=== PATIENT | female | born 1980 | race Caucasian/White ===

== ENCOUNTER 2019-04-06 12:37 | Observation (INO) | payer OTHER ==
[~2019-04-06] VITALS: Ht 157.5 cm; Wt 88.4 kg
[~2019-04-06 12:37] MED LIST: BUPR100 PO; LEVSOD75 PO; ORACONB; TOPI25 PO
[2019-04-06 13:31] LABS: Alanine Aminotransfer (ALT/SGP 77 U/L (12-78); Albumin, Blood 3.3 g/dL (3.4-5.0); Albumin/Globulin Ratio 0.8 (0.8-1.8); Alk Phos 94 U/L (50-136); Anion Gap 9 mmol/L (6-16); Aspartate Aminotrans (AST/SGOT 80 U/L (12-37); Bilirubin, Total 0.7 mg/dL (0.1-1.0); Blood Urea Nitrogen 17 mg/dL (8-24); Bun/Creatinine Ratio 19.1 (12.0-20.0); CO2, Blood 22 mmol/L (21-32); Calcium, Blood 8.5 mg/dL (8.5-10.1); Chloride, Blood 106 mmol/L (98-108); Creatinine, Blood 0.89 mg/dL (0.40-1.00); Globulin, Blood 3.9 g/dL (2.2-4.0); Glomerular Filtration Rate >60 (60-); Glucose, Blood 106 mg/dL (70-99); Potassium, Blood 4.1 mmol/L (3.5-5.5); Sodium, Blood 137 mmol/L (136-145); Total Protein, Blood 7.2 g/dL (6.4-8.2)
[2019-04-06 13:50] LABS: BASOPHILS ABSOLUTE AUTO 0.03 K/mm3 (0.00-0.23); BASOPHILS PERCENT AUTO 0 % (0-2); EOSINOPHILS ABSOLUTE AUTO 0.09 K/mm3 (0.00-0.68); EOSINOPHILS PERCENT AUTO 1 % (0-6); Hematocrit 40.5 % (33.0-51.0); Hemoglobin 12.9 g/dL (11.5-16.0); IMMATURE GRAN ABSOLUTE AUTO 0.02 K/mm3 (0.00-0.10); IMMATURE GRAN PERCENT AUTO 0 % (0-1); LYMPHOCYTES ABSOLUTE AUTO 1.79 K/mm3 (0.84-5.20); LYMPHOCYTES PERCENT AUTO 21 % (21-46); MONOCYTES ABSOLUTE AUTO 0.72 K/mm3 (0.16-1.47); MONOCYTES PERCENT AUTO 8 % (4-13); Mean Corpuscular HGB 28.5 pg (26.0-34.0); Mean Corpuscular HGB Conc 31.9 g/dL (31.5-36.5); Mean Corpuscular Volume 90 fL (80-100); Mean Platelet Volume 10.9 fL (9.1-12.4); NEUTROPHILS ABSOLUTE AUTO 5.94 K/mm3 (1.96-9.15); NEUTROPHILS PERCENT AUTO 69 % (41-73); Platelet Count 244 K/mm3 (150-400); RDW Coefficient Variation 12.6 % (11.7-14.2); RDW Standard Deviation 41.2 fL (35.1-46.3); Red Blood Cell Count 4.52 M/mm3 (3.80-5.20); White Blood Cell Count 8.59 K/mm3 (4.00-11.30)
[2019-04-06] MEDS ORDERED: VITAMIN B-121000 MC2 PO (15:21)
[2019-04-06] MEDS ORDERED: CAMRESE LO TAB1 EAC1 PO (15:22)
[2019-04-06] MEDS ORDERED: BUPROPION XL150 MG PO (15:22)
--- NOTE | 2019-04-06 17:20 | NUR ---
SHIFT SUMMARY PT TO SURGICAL FLOOR FROM ED APPROX 1630 TODAY. IND IN RM. PT WAS GIVEN PAIN AND NAUSEA MED IN ED AND HAS SINCE REPORTED TOLERABLE PAIN AND NO NAUSEA. FAMILY HAS BEEN AT BEDSIDE. PT A/OX4.
--- NOTE | 2019-04-07 06:23 | NUR ---
SHIFT SUMMARY: KEYANNA IS AWAITING CHOLECYSTECTOMY. HER PAIN HAS BEEN WELL CONTROLLED. SHE DID COMPLAING OF A HEADACHE FOR WHICH TYLENOL WAS EFFECTIVE. VSS. SHE IS A&O X 4. SHE DENIES ANY NAUSEA OR VOMITING AT THIS TIME. SHE IS INDEPENDENT IN THE ROOM. SHE IS LYING IN BED WITH HER CALL LIGHT IN REACH.
--- NOTE | 2019-04-07 08:51 | NUR ---
DR. ORELLANA IN TO CONSULT ON PATIENT
--- NOTE | 2019-04-07 11:32 | NUR ---
PT BACK FROM SURGERY AT THIS TIME. VSS. PT DROWSY, REPORTS TOLERABLE DISCOMFORT. FAMILY AT BEDSIDE.
--- NOTE | 2019-04-07 16:29 | NUR ---
SHIFT SUMMARY PT HAD SURGERY TODAY AND HAS BEEN RESTING MUCH OF THE DAY SINCE SURGERY. PAIN HAS BEEN MANAGED WITH MED PRN. PT REPORTS NO NAUSEA. PT HAS AMBULATED SEVERAL TIMES THIS AFTERNOON, IS TOLERATING PO FLUIDS WELL. PT HAS VOIDED SEVERAL TIMES SINCE SURGERY. FAMILY AT BEDSIDE. ASSISTED WITH ADL'S PRN.
[2019-04-07] MEDS ORDERED: HYDR1TAB94 PO (17:21)
--- NOTE | 2019-04-07 19:47 | NUR ---
PT C/O PAIN THAT SHE STATES FEELS LIKE GAS BUBBLES STUCK UNDER HER STOMACH. SHE WAS ENCOURAGED TO GET UP AND WALK. SHE IS AMBULATING INDEPENDENTLY IN THE HALLWAY WITH A STEADY GAIT.
--- NOTE | 2019-04-07 20:07 | NUR ---
Patient up to Ambulate independently. Gait steady. Discharge instructions reviewed with patient. Patient verbalizes understanding. Copy given to patient to take home. Dressing to procedure site clean, dry, intact with no visible drainage, swelling, erythema or bruising noted. Patient States Post-Procedure ride home has been arranged. IV discontinued, catheter intact. Pt reports pain well controlled, gas pain has resolved. Pt independent in room and hallway. VSS. providing ride home in private car.
== END 2019-04-07 20:39 | disposition home or self-care (01) ==
LOC: ER 12:37 → SURS 12:38
PROVIDERS: Internal Medicine; ADMIT Surgery
PROC: BF13YZZ Fluoroscopy of Gallbladder and Bile Ducts using Other Contrast (ICD-10-PCS; 2019-04-07)
PROC: 0FT44ZZ Resection of Gallbladder, Percutaneous Endoscopic Approach (ICD-10-PCS; principal; 2019-04-07 09:00)
DX: K80.12 Calculus of gallbladder with acute and chronic cholecystitis without obstruction (principal); E03.9 Hypothyroidism, unspecified; F32.9 Major depressive disorder, single episode, unspecified; Z79.899 Other long term (current) drug therapy
CPT/HCPCS: 36415; 76705; 80053; 81025; 83690; 85025; 88304; 93005; 93010; 96361; 96365; 96366; 96375; 96376; 99285-25; A9270; A9270-GY; G0378; J1100; J1885; J2250; J2405; J2543; J2704; J2710; J3010; J7120

== ENCOUNTER → 2020-09-11 | Outpatient (CLI) | payer OTHER ==
[~2020-09-11] MED LIST changes: +BUPROPION XL150 MG PO; +CAMRESE LO TAB1 EAC1 PO; +HYDR1TAB94 PO; +VITAMIN B-121000 MC2 PO
[2020-09-15 16:10] LABS: HPV 16 Negative (Negative); HPV 18 Negative (Negative); HPV OTHER HR TYPES Negative (Negative)
== END ==
LOC: LAB SHORT 17:17 → LAB 17:17
PROVIDERS: Family Medicine
DX: Z01.419 Encounter for gynecological examination (general) (routine) without abnormal findings (principal)
CPT/HCPCS: 87624; G0123